=== PATIENT | female | born 1935 | race Caucasian/White ===

== ENCOUNTER 2021-10-28 07:51 | Inpatient (IN) | payer MEDICARE ==
[~2021-10-28] VITALS: Ht 170.2 cm; Wt 60.1 kg
[2021-10-28] MEDS ORDERED: ATEN-177 PO (09:57)
[2021-10-28] MEDS ORDERED: CELE100C MT (10:09)
[2021-10-28] MEDS ORDERED: ACETAMINOPHEN 325MG TABLET PO PRN (10:15)
[2021-10-28] MEDS ORDERED: DOCUSATE SODIUM 100MG CAPSULE PO PRN ×2 (12:30→13:45)
[2021-10-28] MEDS ORDERED: CLONIDINE 0.1MG TABLET PO PRN ×2 (12:30→13:45)
[2021-10-28] MEDS ORDERED: IPRATROPIUM/ALBUTEROL 0.5-3(2.5)MG/3ML NEB NEB PRN (12:30)
[2021-10-28] MEDS ORDERED: FUROSEMIDE 40MG/4ML VIAL IVP NR (12:30)
[2021-10-28] MEDS ORDERED: GUAIFENESIN 200MG/10ML SUGAR FREE UDC PO PRN ×2 (12:30→13:45)
[2021-10-28] MEDS ORDERED: DIPHENHYDRAMINE 50MG/ML VIAL IV PRN (12:30)
[2021-10-28] MEDS ORDERED: NA PHOS,M-B/NA PHOS,DI-BA ENEMA 118ML PR PRN (12:30)
[2021-10-28] MEDS ORDERED: MAGNESIUM/ALUMINUM HYDROXIDE/SIMETHICONE 30ML UDC PO PRN (12:30)
[2021-10-28 12:48] VITALS: BP 180/91
[2021-10-28 12:54] LABS: BASOPHILS % 1.1 % (0.0-2.0); EOSINOPHILS % 3.6 % (0.0-5.0); HEMATOCRIT. 29.1 % (36.0-48.0); HEMOGLOBIN. 9.4 g/dL (12.0-16.0); LYMPHOCYTES % 17.6 % (20.0-50.0); MEAN CORPUSCULAR HEMOGLOBIN 29.6 pg (28.0-32.0); MEAN CORPUSCULAR VOLUME 91.3 fL (81.0-99.0); MEAN PLATELET VOLUME 8.4 fl (7.4-10.4); MONOCYTES % 8.3 % (2.0-8.0); NEUTROPHILS % 69.4 % (40.0-76.0); PLATELET 208 x1000/uL (130-400); RED BLOOD CELL COUNT 3.19 mill/uL (4.2-5.4); RED CELL DISTRIBUTION WIDTH 14.6 % (11.6-14.6)
[2021-10-28 13:01] LABS: CHLORIDE 109 mEq/L (98-107)
[2021-10-28 13:06] LABS: INR 1.1; PARTIAL THROMBOPLASTIN TIME 29.2 sec (23.4-31.0); PROTHROMBIN TIME 11.8 sec (9.6-11.0)
[2021-10-28] MEDS ORDERED: LORAZEPAM 2MG/ML CPJ IV PRN (13:45)
[2021-10-28] MEDS ORDERED: ONDANSETRON HCL 4MG/2ML INJ IV PRN (13:45)
[2021-10-28 14:00] VITALS: BP 169/78
[2021-10-28] MEDS ORDERED: NALOXONE HCL 0.4MG/ML VIAL IV PRN (14:00)
[2021-10-28] MEDS: ENOXAPARIN 40MG/0.4ML SYR SUBCUT SCH (14:07)
[2021-10-28 15:48] VITALS: BP 163/78
[2021-10-28 16:04] LABS: HDL CHOLESTEROL 55 mg/dL (40-59); LDL CHOLESTEROL 62 mg/dL (5-100)
[2021-10-28 16:15] LABS: CLARITY URINE CLEAR (CLEAR); COLOR URINE YELLOW (YELLOW); KETONES URINE NEGATIVE (NEGATIVE); LEUKOCYTE ESTERASE URINE NEGATIVE (NEGATIVE); NITRITE URINE NEGATIVE (NEGATIVE); OCCULT BLOOD URINE NEGATIVE (NEGATIVE); PH URINE 7.5 (4.5-8.0); PROTEIN URINE NEGATIVE (NEGATIVE); SPECIFIC GRAVITY URINE 1.008 (1.005-1.030); UROBILINOGEN URINE 0.2 E.U./dL (0.2-1.0)
[2021-10-28] MEDS: IPRATROPIUM/ALBUTEROL 0.5-3(2.5)MG/3ML NEB HHN SCH ×2 (16:38→21:00)
[2021-10-28 18:00] VITALS: BP 134/77
[2021-10-28] MEDS ORDERED: FUROSEMIDE 40MG/4ML VIAL IVP SCH (18:00)
[2021-10-28 20:00] VITALS: BP 128/57
[2021-10-28] MEDS: CARVEDILOL 3.125 MG TABLET PO SCH (21:13)
[2021-10-28 22:00] VITALS: BP 150/88
[2021-10-29] VITALS (12 sets, daily range): BP systolic 96–169; BP diastolic 52–88
[2021-10-29] MEDS: IPRATROPIUM/ALBUTEROL 0.5-3(2.5)MG/3ML NEB HHN SCH ×4 (02:25→21:00)
[2021-10-29 06:30] LABS: BASOPHILS % 0.9 % (0.0-2.0); EOSINOPHILS % 5.1 % (0.0-5.0); HEMATOCRIT. 27.6 % (36.0-48.0); HEMOGLOBIN. 9.3 g/dL (12.0-16.0); LYMPHOCYTES % 21.5 % (20.0-50.0); MEAN CORPUSCULAR HEMOGLOBIN 29.9 pg (28.0-32.0); MEAN CORPUSCULAR VOLUME 88.5 fL (81.0-99.0); MEAN PLATELET VOLUME 9.3 fl (7.4-10.4); MONOCYTES % 10.7 % (2.0-8.0); NEUTROPHILS % 61.8 % (40.0-76.0); PLATELET 191 x1000/uL (130-400); RED BLOOD CELL COUNT 3.12 mill/uL (4.2-5.4); RED CELL DISTRIBUTION WIDTH 14.8 % (11.6-14.6)
[2021-10-29 06:45] LABS: CHLORIDE 104 mEq/L (98-107)
[2021-10-29] MEDS ORDERED: BACITRACIN 15GM TUBE TOP ONE (08:06)
[2021-10-29] MEDS ORDERED: THROMBIN (BOVINE) 5000 UNITS/VIAL TOP ONE (08:06)
[2021-10-29] MEDS ORDERED: LIDOCAINE HCL 1% 50ML VIAL (10MG/ML) ONE (08:06)
[2021-10-29] MEDS ORDERED: SKIN ADHESIVE 0.7 GM EA TOP ONE ×2 (08:07)
[2021-10-29] MEDS ORDERED: IODIXANOL 320MG/ML 100 ML BOTTLE IV ONE (08:31)
[2021-10-29] MEDS ORDERED: HEPARIN 1000 UNITS/ML 10ML ONE (08:31)
[2021-10-29] MEDS: SPIRONOLACTONE 25MG TABLET PO SCH (08:36)
[2021-10-29] MEDS: CARVEDILOL 3.125 MG TABLET PO SCH ×2 (08:36→21:00)
[2021-10-29] MEDS ORDERED: LIDOCAINE HCL 1% 10 MG/ML 10ML VIAL ONE (08:38)
[2021-10-29] MEDS ORDERED: FENTANYL CITRATE/PF 50MCG/ML 2ML VIAL ONE (08:39)
[2021-10-29] MEDS ORDERED: DEXAMETHASONE 4MG/ML 1ML VIAL ONE (08:40)
[2021-10-29] MEDS ORDERED: ONDANSETRON HCL 4MG/2ML INJ ONE (08:40)
[2021-10-29] MEDS ORDERED: METOCLOPRAMIDE HCL 10MG/2ML VIAL ONE (08:40)
[2021-10-29] MEDS ORDERED: CEFAZOLIN 1000MG PREMIX 100 ML IV ONE (08:44)
[2021-10-29] MEDS ORDERED: BUPIVACAINE HCL/PF 0.25% (2.5MG/ML) 10ML INFIL NR (09:00)
[2021-10-29] MEDS ORDERED: ONDANSETRON HCL 4MG/2ML INJ IV PRN (10:15)
[2021-10-29] MEDS ORDERED: FENTANYL CITRATE/PF 50MCG/ML 2ML VIAL IV PRN (10:15)
[2021-10-29] MEDS ORDERED: HYDROMORPHONE HCL/PF 2MG/ML CPJ IV PRN (10:15)
[2021-10-29] MEDS ORDERED: MEPERIDINE HCL/PF 25MG/ML CPJ IV PRN (10:15)
[2021-10-29] MEDS ORDERED: KETOROLAC 30MG/ML VIAL ONE (10:17)
[2021-10-29] MEDS ORDERED: SODIUM CHLORIDE 0.9% 1,000 ML IV ONE (10:30)
[2021-10-29] MEDS: ENOXAPARIN 40MG/0.4ML SYR SUBCUT SCH (13:02)
[2021-10-30] VITALS (12 sets, daily range): BP systolic 109–147; BP diastolic 57–85
[2021-10-30] MEDS: IPRATROPIUM/ALBUTEROL 0.5-3(2.5)MG/3ML NEB HHN SCH ×4 (02:28→20:27)
[2021-10-30] MEDS: CARVEDILOL 3.125 MG TABLET PO SCH ×2 (08:58→20:23)
[2021-10-30] MEDS: SPIRONOLACTONE 25MG TABLET PO SCH (08:58)
[2021-10-30] MEDS: ENOXAPARIN 40MG/0.4ML SYR SUBCUT SCH (14:47)
[2021-10-30] MEDS: HYDROCODONE/ACETAMINOPHEN 5/325MG TABLET PO PRN (20:24)
[2021-10-31] VITALS (12 sets, daily range): BP systolic 99–162; BP diastolic 56–93
[2021-10-31] MEDS: IPRATROPIUM/ALBUTEROL 0.5-3(2.5)MG/3ML NEB HHN SCH ×4 (01:03→21:21)
[2021-10-31] MEDS: CARVEDILOL 3.125 MG TABLET PO SCH ×2 (09:43→20:32)
[2021-10-31] MEDS: SPIRONOLACTONE 25MG TABLET PO SCH (09:44)
[2021-10-31] MEDS: ENOXAPARIN 40MG/0.4ML SYR SUBCUT SCH (15:50)
[2021-10-31] MEDS: HYDROCODONE/ACETAMINOPHEN 5/325MG TABLET PO PRN (20:34)
[2021-11-01] VITALS (16 sets, daily range): BP systolic 122–163; BP diastolic 65–117
[2021-11-01] MEDS: HYDROCODONE/ACETAMINOPHEN 5/325MG TABLET PO PRN (00:31)
[2021-11-01] MEDS: IPRATROPIUM/ALBUTEROL 0.5-3(2.5)MG/3ML NEB HHN SCH ×4 (03:11→20:50)
[2021-11-01] MEDS: SPIRONOLACTONE 25MG TABLET PO SCH (09:49)
[2021-11-01] MEDS: CARVEDILOL 3.125 MG TABLET PO SCH ×2 (09:50→21:51)
[2021-11-01] MEDS: ENOXAPARIN 40MG/0.4ML SYR SUBCUT SCH (13:52)
[2021-11-01] MEDS: FUROSEMIDE 40MG TABLET PO SCH (13:52)
[2021-11-01 16:25] LABS: BG BASE EXCESS 1.3 mmol/L (-2.0-2.0); BG CARBOXYHEMOGLOBIN 0.3 % (0.5-1.5); BG DEOXYHEMOGLOBIN 3.7 % (0.0-5.0); BG FRACTION INSPIRED OXYGEN 21; BG HCO3 ACT 24.9 mmol/L (22.0-26.0); BG METHEMOGLOBIN 0.3 % (0.0-1.5); BG OXYGEN SATURATION 96.3 % (92.0-98.5); BG OXYHEMOGLOBIN 95.7 % (94.0-97.0); BG PCO2 35.6 mmHg (35.0-45.0); BG PH 7.462 (7.350-7.450); BG SAMPLE SITE RIGHT BRACHIAL; BG VENT MODE ROOM AIR
[2021-11-01 17:11] LABS: CHLORIDE 105 mEq/L (98-107)
[2021-11-02] VITALS (13 sets, daily range): BP systolic 91–155; BP diastolic 45–118
[2021-11-02] MEDS: IPRATROPIUM/ALBUTEROL 0.5-3(2.5)MG/3ML NEB HHN SCH ×3 (00:52→13:25)
[2021-11-02] MEDS: SPIRONOLACTONE 25MG TABLET PO SCH (10:00)
[2021-11-02] MEDS: CARVEDILOL 3.125 MG TABLET PO SCH (10:00)
[2021-11-02] MEDS: FUROSEMIDE 40MG TABLET PO SCH (10:00)
[2021-11-02] MEDS ORDERED: GABAPENTIN 100MG CAPSULE PO SCH (14:00)
[2021-11-02] MEDS: ENOXAPARIN 40MG/0.4ML SYR SUBCUT SCH (14:26)
== END 2021-11-02 18:14 | DRG 270 ==
LOC: OR 07:51 → 3WST 07:52
PROVIDERS: ADMIT Surgery Vascular Surgery; ATTEND Hospitalist
PROC: 04CK3ZZ Extirpation of Matter from Right Femoral Artery, Percutaneous Approach (ICD-10-PCS; principal; 2021-10-29)
PROC: 04CM3ZZ Extirpation of Matter from Right Popliteal Artery, Percutaneous Approach (ICD-10-PCS; 2021-10-29)
PROC: 047K3ZZ Dilation of Right Femoral Artery, Percutaneous Approach (ICD-10-PCS; 2021-10-29)
PROC: 047M3ZZ Dilation of Right Popliteal Artery, Percutaneous Approach (ICD-10-PCS; 2021-10-29)
PROC: B41F1ZZ Fluoroscopy of Right Lower Extremity Arteries using Low Osmolar Contrast (ICD-10-PCS; 2021-10-29)
DX: E11.51 Type 2 diabetes mellitus with diabetic peripheral angiopathy without gangrene (principal); J96.01 Acute respiratory failure with hypoxia; I50.33 Acute on chronic diastolic (congestive) heart failure; I11.0 Hypertensive heart disease with heart failure; Z20.822 Contact with and (suspected) exposure to COVID-19; E11.40 Type 2 diabetes mellitus with diabetic neuropathy, unspecified; I16.0 Hypertensive urgency; Z82.49 Family history of ischemic heart disease and other diseases of the circulatory system; Z79.899 Other long term (current) drug therapy; H91.90 Unspecified hearing loss, unspecified ear
CPT/HCPCS: 36415; 36600; 37225; 71045; 75710; 80048; 80053; 80061; 81003; 82040; 82375; 82805; 83880; 84145; 84484; 85025; 85347; 87426; 93005; 93306; 93970; 94640; 97116; 97162; 97166; 97535; C1725; C1769; C1885; C1893; C9803; J0690; J1100; J1644; J1650; J1885; J1940; J2060; J2405; J2765; J3010; J3490; Q9967